=== PATIENT | male | born 1990 | race African-American/Black ===

== ENCOUNTER 2018-01-01 09:19 | Emergency (ER) | payer MEDICAID ==
[~2018-01-01] VITALS: Ht 190.5 cm; Wt 90.0 kg
[2018-01-01] MEDS ORDERED: SODIUM CHLORIDE 0.9% 1,000 ML IV ONE (09:43)
[2018-01-01] MEDS ORDERED: ONDANSETRON HCL 4MG/2ML VIAL IV STA (09:43)
[2018-01-01] MEDS ORDERED: KETOROLAC 30MG/ML VIAL IV STA (09:43)
[2018-01-01 10:12] LABS: BASOPHILS % 0.6 % (0.0-2.0); EOSINOPHILS % 0.9 % (0.0-5.0); HEMATOCRIT. 43.8 % (42.0-52.0); HEMOGLOBIN. 14.9 g/dL (14.0-18.0); LYMPHOCYTES % 31.6 % (20.0-50.0); MEAN CORPUSCULAR HEMOGLOBIN 33.3 pg (28.0-32.0); MEAN CORPUSCULAR VOLUME 97.8 fL (80.0-94.0); MEAN PLATELET VOLUME 7.8 fl (7.4-10.4); MONOCYTES % 10.5 % (2.0-8.0); NEUTROPHILS % 56.4 % (40.0-76.0); PLATELET 234 x1000/uL (130-400); RED BLOOD CELL COUNT 4.48 mill/uL (4.7-6.1); RED CELL DISTRIBUTION WIDTH 13.5 % (11.6-14.6)
[2018-01-01 10:16] LABS: CHLORIDE 104 mEq/L (98-107); PROTHROMBIN TIME 10.6 sec (9.4-11.6)
[2018-01-01] MEDS ORDERED: METOCLOPRAMIDE HCL 10MG/2ML VIAL IV ONE (11:15)
[2018-01-01] MEDS ORDERED: MORPHINE SULFATE 4 MG/ML CPJ (NOT FOR IM USE) IV ONE (11:15)
[2018-01-01 11:27] LABS: COLOR URINE DARK YELLOW (YELLOW); KETONES URINE NEGATIVE (NEGATIVE); LEUKOCYTE ESTERASE URINE NEGATIVE (NEGATIVE); NITRITE URINE NEGATIVE (NEGATIVE); OCCULT BLOOD URINE NEGATIVE (NEGATIVE); PH URINE 6.5 (4.5-8.0); PROTEIN URINE NEGATIVE (NEGATIVE); SPECIFIC GRAVITY URINE 1.025 (1.005-1.030)
[2018-01-01 11:32] LABS: CLARITY URINE CLEAR (CLEAR)
[2018-01-01 12:51] VITALS: BP 119/71
== END 2018-01-01 12:55 | disposition home or self-care (01) ==
LOC: ER 10:03
DX: R10.2 Pelvic and perineal pain (principal); Z90.49 Acquired absence of other specified parts of digestive tract
CPT/HCPCS: 36415; 74176; 80053; 81003; 83690; 85025; 85610; 96361; 96374; 96375; 99285; J1885; J2270; J2405; J2765; J7030; Z7610

== ENCOUNTER 2018-02-18 04:04 | Emergency (ER) | payer MEDICAID ==
[~2018-02-18] VITALS: Ht 193 cm; Wt 86.0 kg
[2018-02-18] MEDS ORDERED: KETOROLAC 30MG/ML VIAL IV STA (09:26)
[2018-02-18] MEDS ORDERED: SODIUM CHLORIDE 0.9% 1,000 ML IV ONE (09:26)
[2018-02-18] MEDS ORDERED: ONDANSETRON HCL 4MG/2ML VIAL IV STA (09:26)
[2018-02-18 09:41] LABS: BASOPHILS % 0.5 % (0.0-2.0); EOSINOPHILS % 0.5 % (0.0-5.0); HEMATOCRIT. 39.7 % (42.0-52.0); HEMOGLOBIN. 13.4 g/dL (14.0-18.0); LYMPHOCYTES % 16.3 % (20.0-50.0); MEAN CORPUSCULAR HEMOGLOBIN 32.7 pg (28.0-32.0); MEAN CORPUSCULAR VOLUME 96.5 fL (80.0-94.0); MEAN PLATELET VOLUME 7.7 fl (7.4-10.4); MONOCYTES % 7.4 % (2.0-8.0); NEUTROPHILS % 75.3 % (40.0-76.0); PLATELET 215 x1000/uL (130-400); RED BLOOD CELL COUNT 4.11 mill/uL (4.7-6.1); RED CELL DISTRIBUTION WIDTH 13.4 % (11.6-14.6)
[2018-02-18 09:45] LABS: CHLORIDE 107 mEq/L (98-107)
[2018-02-18 09:47] LABS: PROTHROMBIN TIME 10.6 sec (9.4-11.6)
[2018-02-18 11:33] LABS: CLARITY URINE CLEAR (CLEAR); COLOR URINE YELLOW (YELLOW); KETONES URINE 2+ (NEGATIVE); LEUKOCYTE ESTERASE URINE TRACE (NEGATIVE); NITRITE URINE NEGATIVE (NEGATIVE); OCCULT BLOOD URINE NEGATIVE (NEGATIVE); PH URINE 5.5 (4.5-8.0); PROTEIN URINE NEGATIVE (NEGATIVE); SPECIFIC GRAVITY URINE 1.032 (1.005-1.030)
[2018-02-18] MEDS ORDERED: HYDROCODONE/ACETAMINOPHEN 5/325MG TABLET PO ONE (12:45)
[2018-02-18] MEDS ORDERED: AZITHROMYCIN 500 MG TABLET PO ONE (13:00)
[2018-02-18] MEDS ORDERED: LIDOCAINE HCL 1% 20ML VIAL (Pyxis) INJ INFIL ONE (13:00)
[2018-02-18] MEDS ORDERED: CEFTRIAXONE SODIUM 250 MG/VIAL IM ONE (13:00)
[2018-02-18 13:27] VITALS: BP 102/72
== END 2018-02-18 13:30 | disposition home or self-care (01) ==
LOC: ER 04:44
DX: N39.0 Urinary tract infection, site not specified (principal); F12.10 Cannabis abuse, uncomplicated
CPT/HCPCS: 36415; 80053; 81003; 83690; 85025; 85610; 96361; 96372; 96374; 96375; 99285; J0696; J1885; J2405; J3490; J7030; Z7610